=== PATIENT | female | born 1955 | race Native Hawaiian/Other Pacific Islander ===

== ENCOUNTER → 2019-03-24 | Outpatient (CLI) | payer MEDICARE, OTHER ==
--- NOTE | 2019-03-24 09:30 | US ---
EXAMINATION TYPE: US abdomen complete DATE OF EXAM: 03/24/2019 COMPARISON: CT 2012 CLINICAL HISTORY: K82.4 CHOLESTEROLOSIS OF GALLBLADDER. EXAM MEASUREMENTS: Liver Length: 16.5 cm Gallbladder Wall: 0.2 cm CBD: 0.3 cm Spleen: 7.4 cm Right Kidney: 10.4 x 4.5 x 5.6 cm Left Kidney: 10.6 x 4.5 x 4.3 cm Pancreas: Tail obscured by overlying bowel gas Liver: fatty liver sparing anterior to gb 1.3 x 0.5 x1.0 cm Gallbladder: wnl Evidence for sonographic Dillon's sign: No CBD: wnl Spleen: wnl Right Kidney: posterior non vascular mixed mass 1.6 x 1.7 x 1.2 cm Left Kidney: medial 1.8 x 1.0 x 0.7 cm non vascular mixed mass Upper IVC: wnl Abd Aorta: wnl The liver is homogenous. The intrahepatic portion of the IVC and proximal abdominal aorta are within normal limits. There is no evidence of cholelithiasis. Common bile duct is unremarkable. The visu alized portions of the pancreas are homogenous. The spleen is unremarkable. Kidneys are symmetric a nd free of hydronephrosis. No renal lesions are seen. IMPRESSION: 1. Hepatic steatosis with areas of focal fatty sparing. 2. Nonspecific renal lesions. Contrast CT of the abdomen with attention to the kidneys is advised.
== END | disposition home or self-care (01) ==
LOC: RADUSWWP 08:44
PROVIDERS: ATTEND Internal Medicine Gastroenterology
DX: K76.0 Fatty (change of) liver, not elsewhere classified (principal); N28.9 Disorder of kidney and ureter, unspecified
CPT/HCPCS: 76700

== ENCOUNTER → 2019-04-11 | Outpatient (CLI) | payer MEDICARE, OTHER | END | disposition home or self-care (01) | LOC: LABWHC1 09:17 | PROVIDERS: ATTEND Physician Assistant | DX: R74.8 Abnormal levels of other serum enzymes (principal) | CPT/HCPCS: 36415 ==

== ENCOUNTER → 2024-09-01 | Outpatient (CLI) | payer MEDICARE, OTHER ==
[2024-09-01 15:22] LABS: HCT 41.2 % (37.2-46.3); HGB 13.5 g/dL (12.0-15.0); MCH 30.3 pg (27.0-32.0); MCHC 32.8 g/dL (32.0-37.0); MCV 92.4 FL (80.0-97.0); NRBC Per 100 WBC 0 X 10*3/uL (0.00-0.01); Platelet Count 248 X 10*3/uL (140-440); RBC 4.46 X 10*6/uL (4.10-5.20); RDW 13.1 % (11.5-14.5); WBC 9.59 X 10*3/uL (4.50-10.00)
[2024-09-01 15:23] LABS: Basophils # (A) 0.08 X 10*3/uL (0.00-0.10); Basophils % (A) 0.8 %; Eosinophils # (A) 0.42 X 10*3/uL (0.04-0.35); Eosinophils % (A) 4.4 %; Lymphocytes # (A) 2.69 X 10*3/uL (0.90-5.00); Lymphocytes % (A) 28.1 %; Monocytes % (A) 7.3 %; Neutrophils # (A) 5.53 X 10*3/uL (1.80-7.70); Neutrophils % (A) 57.6 %
[2024-09-01 15:29] LABS: ALT 62 U/L (8-44); AST 43 U/L (13-35); Albumin 4.2 g/dL (3.8-4.9); Albumin/Globulin Ratio 1.24 Ratio (1.60-3.17); Alkaline Phosphatase 67 U/L (41-126); BUN/Creat Ratio 20.29 Ratio (12.00-20.00); Blood Urea Nitrogen 14.2 mg/dL (9.0-27.0); Calcium 9.8 mg/dL (8.7-10.3); Carbon Dioxide 25.8 mmol/L (21.6-31.8); Chloride 104 mmol/L (96-109); Globulin 3.4 g/dL (1.6-3.3); Glucose 150 mg/dL (70-110); Potassium 4.6 mmol/L (3.5-5.5); Sodium 141 mmol/L (135-145); Total Bilirubin 0.8 mg/dL (0.3-1.2); Total Protein 7.6 g/dL (6.2-8.2)
== END | disposition home or self-care (01) ==
LOC: LABWHC1 08:19
PROVIDERS: ATTEND Internal Medicine Gastroenterology
DX: K76.0 Fatty (change of) liver, not elsewhere classified (principal)
CPT/HCPCS: 36415; 80053; 85025